=== PATIENT | male | born 1990 | race Caucasian/White ===

== ENCOUNTER → 2018-12-30 | Outpatient (CLI) | payer OTHER ==
--- NOTE | 2018-12-30 17:26 | Diagnostic Imaging Report ---
PROCEDURE: CT abdomen and pelvis without contrast. TECHNIQUE: Multiple contiguous axial images were obtained through the abdomen and pelvis without the use of intravenous contrast. INDICATION: Right flank pain. FINDINGS: Study is limited by motion. Unenhanced images of the liver and spleen reveal no focal abnormality. Gallbladder is surgically absent. No pancreatic or adrenal gland abnormality is identified. There is no evidence of urinary tract calculus or dilatation. No renal mass is seen. There is distention of the bladder. Prostate gland appears to be within normal limits for size. There is punctate penile calcification on the left without evidence of urethral calcification. There is no evidence of free fluid or organized fluid collection within the abdomen or pelvis. IMPRESSION: 1. No CT evidence of urinary tract calculus or obstruction. 2. There is no evidence of acute abnormality seen within the abdomen or pelvis although the urinary bladder is significantly distended. Dictated by: Dictated on workstation # [id number]
== END ==
LOC: RAD FS 16:43
PROVIDERS: ATTEND Family Medicine
DX: R10.9 Unspecified abdominal pain (principal); Z90.49 Acquired absence of other specified parts of digestive tract
CPT/HCPCS: 74176

== ENCOUNTER → 2020-03-29 | Outpatient (CLI) | payer OTHER ==
--- NOTE | 2020-03-29 17:26 | Diagnostic Imaging Report ---
INDICATION: Right lower quadrant pain. KUB at 05:02 p.m. FINDINGS: There is gaseous distention of the stomach. Bowel gas pattern is otherwise unremarkable. There are no pathologic masses or fluid collections seen. Lung bases are clear. IMPRESSION: Gaseous distention of the stomach. Dictated by: Dictated on workstation # [id number]
== END ==
LOC: RAD FS 16:17
PROVIDERS: ATTEND Family Medicine
DX: R14.0 Abdominal distension (gaseous) (principal); R10.31 Right lower quadrant pain
CPT/HCPCS: 74018